=== PATIENT | male | born 1985 | race Caucasian/White ===

== ENCOUNTER 2017-05-13 20:34 | Emergency (ER) | payer OTHER ==
[~2017-05-13] VITALS: Ht 177.8 cm; Wt 100.7 kg
[2017-05-13 20:54] VITALS: BP 141/91; Ht 177.8 cm; Wt 100.7 kg
== END 2017-05-13 22:20 | disposition home or self-care (01) ==
LOC: ED 20:34
DX: K04.7 Periapical abscess without sinus (principal); L30.9 Dermatitis, unspecified; G89.29 Other chronic pain; M54.9 Dorsalgia, unspecified; Z88.6 Allergy status to analgesic agent

== ENCOUNTER 2017-09-10 15:46 | Emergency (ER) | payer MEDICAID ==
[~2017-09-10] VITALS: Ht 180.3 cm; Wt 99.3 kg
[2017-09-10 15:50] VITALS: BP 154/93; Ht 180.3 cm; Wt 99.3 kg
== END 2017-09-10 17:16 | disposition home or self-care (01) ==
LOC: ED 15:46
DX: S39.012A Strain of muscle, fascia and tendon of lower back, initial encounter (principal); R11.0 Nausea; K02.9 Dental caries, unspecified; L30.9 Dermatitis, unspecified; I10 Essential (primary) hypertension; Z88.6 Allergy status to analgesic agent; X50.0XXA Overexertion from strenuous movement or load, initial encounter; X50.9XXA Other and unspecified overexertion or strenuous movements or postures, initial encounter; Y93.89 Activity, other specified; Y92.89 Other specified places as the place of occurrence of the external cause; Y99.8 Other external cause status